=== PATIENT | male | born 1985 | race Two or more races ===

== ENCOUNTER 2017-08-17 18:13 | Emergency (ER) | payer MEDICAID ==
[~2017-08-17] VITALS: Ht 172.7 cm; Wt 99.6 kg
[2017-08-17 18:14] VITALS: BP 112/76
[2017-08-17] MEDS ORDERED: CARB200T4 PO (18:41)
[2017-08-17] MEDS ORDERED: CHOL200040 PO (18:41)
[2017-08-17] MEDS ORDERED: SITA1TBM4 PO (18:41)
[2017-08-17] MEDS ORDERED: ILOP6TAB2 PO (18:41)
[2017-08-17] MEDS ORDERED: NICO1PAT31 TD (18:41)
[2017-08-17] MEDS ORDERED: LISI-167 PO (18:41)
[2017-08-17] MEDS ORDERED: RANI150T4 PO (18:41)
[2017-08-17] MEDS ORDERED: QUET25TA PO (18:41)
[2017-08-17] MEDS ORDERED: SERT50TA5 PO (18:41)
== END 2017-08-17 22:54 | disposition home or self-care (01) ==
LOC: ED 19:29
DX: T76.21XA Adult sexual abuse, suspected, initial encounter (principal); I10 Essential (primary) hypertension; E11.9 Type 2 diabetes mellitus without complications; Z90.49 Acquired absence of other specified parts of digestive tract; X58.XXXA Exposure to other specified factors, initial encounter; Y93.89 Activity, other specified; Y92.89 Other specified places as the place of occurrence of the external cause; Y99.8 Other external cause status
CPT/HCPCS: 99281